=== PATIENT | female | born 1995 ===

== ENCOUNTER 2018-01-09 17:57 | Inpatient (IN) | payer OTHER ==
[~2018-01-09] VITALS: Ht 160 cm; Wt 2.7 kg
[~2018-01-09 17:57] MED LIST: PEPCID20 MG PO; ZOFRAN4 MG PO
[2018-01-09] MEDS ORDERED: ZANTAC150 M3 PO (18:37)
[2018-01-09] MEDS ORDERED: PRENATAL TABLE1 EAC1 PO (18:38)
[2018-01-14] MEDS ORDERED: NAPROXEN500 MG PO (08:57)
[2018-01-14] MEDS ORDERED: OXYC1TAB9 PO (08:57)
== END 2018-01-14 10:55 | DRG 766 ==
LOC: LDR 17:57 → OB/GYN 01-10 22:00
PROVIDERS: Obstetrics & Gynecology
PROC: 10907ZC Drainage of Amniotic Fluid, Therapeutic from Products of Conception, Via Natural or Artificial Opening (ICD-10-PCS; 2018-01-10)
PROC: 3E0P7VZ Introduction of Hormone into Female Reproductive, Via Natural or Artificial Opening (ICD-10-PCS; 2018-01-10)
PROC: 4A033R1 Measurement of Arterial Saturation, Peripheral, Percutaneous Approach (ICD-10-PCS; 2018-01-10)
PROC: 4A1HXCZ Monitoring of Products of Conception, Cardiac Rate, External Approach (ICD-10-PCS; 2018-01-10)
PROC: 10D00Z1 Extraction of Products of Conception, Low, Open Approach (ICD-10-PCS; principal; 2018-01-10 19:00)
DX: O62.0 Primary inadequate contractions (principal); Z3A.37 37 weeks gestation of pregnancy; Z37.0 Single live birth